=== PATIENT | female | born 1985 | race Caucasian/White ===

== ENCOUNTER 2016-10-04 08:17 | Inpatient (IN) | payer MEDICAID ==
[2016-10-04 09:17] LABS: APPEARANCE,URINE SLIGHTLY-CLOUDY; BILIRUBIN,URINE NEGATIVE (NEGATIVE); GLUCOSE, URINE NEGATIVE (NEGATIVE); KETONES,URINE NEGATIVE (NEGATIVE); LEUKOCYTE ESTERASE,URINE SMALL (NEGATIVE); NITRITE,URINE NEGATIVE (NEGATIVE); PROTEIN,URINE NEGATIVE (NEGATIVE); URINE SPECIFIC GRAVITY 1.012; UROBILINOGEN,URINE NEGATIVE mg/dL (<2.0)
[2016-10-04 09:32] LABS: URINE BARBITURATES SCREEN NEGATIVE; URINE METHADONE SCREEN NEGATIVE; URINE OPIATES LOW NEGATIVE; URINE PHENCYCLIDINE SCREEN NEGATIVE
--- NOTE | 2016-10-04 10:01 | L&D Flow Sheet ---
LD Flowsheet Datetime Report Generated by CPN: 10/04/2016 10:00 Datetime: 10/04/2016 09:53 Assessment A Monitor Interventions for FHR: Ultrasound Adjusted (Aryletha Diamond, RN) Patient Care Comments: pt standing at bedside (Ary Baidy, RN) Datetime: 10/04/2016 09:45 Patient Care Patient Position/Activity: Birthing Ball (Ary Baidy, RN) Datetime: 10/04/2016 09:41 Vaginal Exam Dilatation (cm): 4.0 (Ary Baidy, RN) Effacement (%): 90 (Ary Baidy, RN) Station: -2 (Ary Baidy, RN) Exam by: B Baidy RN (Ary Baidy, RN) Cervix, Consistency: Soft (Ary Baidy, RN) Datetime: 10/04/2016 09:37 Uterine Activity Monitor Interventions for UA: [place] Adjusted (Ary Baidy, RN) Datetime: 10/04/2016 09:27 Patient Care Patient Position/Activity: Right Tilt (Ary Baidy, RN) Datetime: 10/04/2016 09:15 Vital Signs NBP Sys/Valery/Mean (mmHg): 109 (QS system process) : 66 (QS system process) : 83 (QS system process) Pulse: 102 (QS system process) Datetime: 10/04/2016 08:49 Vaginal Exam Dilatation (cm): 3.0 (Ary Baidy, RN) Effacement (%): 80 (Ary Baidy, RN) Station: -2 (Ary Baidy, RN) Exam by: B Baidy RN (Ary Baidy, RN) Datetime: 10/04/2016 08:47 Uterine Activity Monitor Interventions for UA: [place] Adjusted (Ary Baidy, RN) Datetime: 10/04/2016 08:44 Vital Signs NBP Sys/Valery/Mean (mmHg): 96 (QS system process) : 66 (QS system process) : 74 (QS system process) Pulse: 114 (QS system process) Datetime: 10/04/2016 08:41 Frequency (min): 5-10 (Ary Diamond, ) Pain Pain Scale: 5 (Ary Graysonirina, ) Pain Presence: Intermittent (Ary Baiirina, ) [facility]: [facility] Pain Location: Abdomen ([facility], ) Pain Goal: 1 ([facility], ) Pain Coping: Breathing Through Contractions ([facility], ) Membrane Status: Intact ([facility], ) Vaginal Bleeding: None ([facility], ) Maternal Assessment Level of Consciousness: Fully Conscious (Ary Graysonirina, ) DTR's/Clonus: DTRs 2+; No Clonus (Ary Lobo, RN) Headache: Frontal (Aryletha Diamond, RN) Breath Sounds, Left: Clear and Equal (Ary Diamond, ) Breath Sounds, Right: Clear and Equal (Ary Diamond RN) Nausea/Vomiting: Denies (Ary Diamond RN) RUQ Epigastric Pain: Denies (Ary Diamond RN) Patient Care Patient Position/Activity: Left Lateral (Ary Diamond, NANCY) Teaching Instructional Method: Verbal; Patient Instructed; Verbalized Understanding (Ary Diamond RN) Plan of Care: Plan of Care Discussed (Ary Diamond RN) Unit Routine: [place] to Room; Call Mariano; Bed; Monitoring (Ary Diamond RN)
[2016-10-04] MEDS ORDERED: CLINDAMYCIN 900 MG/D5W RTU 50 ML IV ONE (10:15)
[2016-10-04] MEDS ORDERED: BENZOIN/ALOE VERA/STORAX/TOLU TINCTURE 60 ML TP PRN (10:42)
[2016-10-04] MEDS ORDERED: FENTANYL/BUPIVACAINE/NS/PF 100 ML EPI PRN (10:42)
[2016-10-04] MEDS ORDERED: EPHEDRINE SULFATE INJ 50 MG/1 ML AMPULE IV PRN (10:42)
[2016-10-04] MEDS ORDERED: BUPIVACAINE HCL/NS/PF 100 ML EPI PRN (10:42)
[2016-10-04] MEDS ORDERED: BUPIVACAINE HCL 0.25 % INJ/PF (2.5 MG/1 ML) 30 ML VIAL INFIL ONE (10:42)
[2016-10-04 10:44] LABS: ABSOLUTE BASOPHILS # (AUTO) 0.1 10^3/uL (0.0-0.2); ABSOLUTE EOSINOPHILS # (AUTO) 0.2 10^3/uL (0.0-0.6); ABSOLUTE LYMPHOCYTES (AUTO) 2.9 10^3/uL (0.5-4.7); ABSOLUTE MONOCYTES (AUTO) 0.8 10^3/uL (0.1-1.4); ABSOLUTE NEUT (AUTO) 11.4 10^3/uL (1.7-8.2); BASOPHILS % (AUTO) 0.8 % (0-2); EOSINOPHILS % (AUTO) 1.1 % (0-6); HEMATOCRIT 35.4 % (36.0-47.0); HGB HCT DIFFERENCE 0.6; LYMPHOCYTES % (AUTO) 19.1 % (13-45); MEAN CORPUSCULAR HEMOGLOBIN 32.1 pg (27.0-33.4); MEAN CORPUSCULAR HGB CONC 33.7 g/dL (32.0-36.0); MEAN CORPUSCULAR VOLUME 95 fl (80-97); RED BLOOD COUNT 3.72 10^6/uL (3.72-5.28); RED CELL DISTRIBUTION WIDTH 14.3 % (11.5-14.0); WHITE BLOOD COUNT 15.4 10^3/uL (4.0-10.5)
[2016-10-04] MEDS ORDERED: EPHEDRINE SULFATE INJ 50 MG/1 ML AMPULE ONE (10:47)
[2016-10-04] MEDS ORDERED: FENTANYL/BUPIVACAINE/NS/PF 200 MCG/100 ML RTUINJ EPI ONE (10:47)
[2016-10-04] MEDS ORDERED: FENTANYL CITRATE INJ/PF 100 MCG/2 ML AMPUL ONE (10:47)
[2016-10-04] MEDS ORDERED: BUPIVACAINE HCL 0.25 % INJ/PF (2.5 MG/1 ML) 30 ML VIAL ONE (10:47)
[2016-10-04] MEDS ORDERED: PHENYLEPHRINE HCL INJ/PF 10 MG/1 ML SDV ONE (10:47)
[2016-10-04] MEDS ORDERED: OXYTOCIN/NORMAL SALINE 20 UNIT/1,000 ML RTUINJ ONE (10:48)
[2016-10-04] MEDS ORDERED: MISOPROSTOL 0.2 MG TABLET ONE (10:48)
[2016-10-04] MEDS ORDERED: LIDOCAINE 1% INJ-PF (10 MG/ML) 30 ML SDV ONE (10:48)
--- NOTE | 2016-10-04 12:02 | L&D Flow Sheet ---
LD Flowsheet Datetime Report Generated by CPN: 10/04/2016 12:00 Datetime: 10/04/2016 11:53 Monitor Interventions for UA: [place] Adjusted (Ary Baidy, RN) Datetime: 10/04/2016 11:46 NBP Sys/Valery/Mean (mmHg): 106 (QS system process) : 60 (QS system process) : 77 (QS system process) Pulse: 78 (QS system process) LaborFlag: Antepartum (QS system process) Datetime: 10/04/2016 11:45 Monitor Mode: External; Palpation (Ary Baidy, RN) Frequency (min): 2-3 (Ary Baidy, RN) Quality: Moderate (Ary Baidy, RN) Duration (sec): 60-110 (Ary Baidy, RN) Duration Criteria: Less than Two 120 Second Contractions (Ary Baidy, RN) Pattern: Normal: <= 5 Contractions in 10 Minutes (Ary Baidy, RN) Resting Tone (Palpate): Relaxed (Ary Baidy, RN) Monitor Mode: External US (Ary Baidy, RN) FHR Baseline Rate : 130 (Ary Baidy, RN) Variability: Moderate 6-25 bpm (Ary Baidy, RN) Accelerations: 15X15 (Ary Baidy, RN) Decelerations: None (Ary Baidy, RN) Datetime: 10/04/2016 11:30 Monitor Mode: External; Palpation (Ary Baidy, RN) Monitor Interventions for UA: [place] Adjusted (Ary Baidy, RN) Frequency (min): 2-3 (Ary Baidy, RN) Quality: Moderate (Ary Baidy, RN) Duration (sec): 60-90 (Ary Diamond RN) Duration Criteria: Less than Two 120 Second Contractions (Ary Diamond RN) Pattern: Normal: <= 5 Contractions in 10 Minutes (Ary Diamond RN) Resting Tone (Palpate): Relaxed (Ary Diamond RN) Monitor Mode: External US (Ary Diamond RN) FHR Baseline Rate : 130 (Ary Diamond RN) Variability: Moderate 6-25 bpm (Ary Diamond RN) Accelerations: 15X15 (Ary Diamond RN) Decelerations: None (Ary Diamond, RN) Datetime: 10/04/2016 11:29 IV/Blood Work: IV Infusing per Order (Ary Diamond RN) Patient Care Comments: 125mL/hr (Ary Diamond RN) Datetime: 10/04/2016 11:28 NBP Sys/Valery/Mean (mmHg): 109 (QS system process) : 67 (QS system process) : 83 (QS system process) Pulse: 80 (QS system process) LaborFlag: Antepartum (QS system process) Datetime: 10/04/2016 11:24 NBP Sys/Valery/Mean (mmHg): 111 (QS system process) : 70 (QS system process) : 85 (QS system process) Pulse: 83 (QS system process) Monitor Interventions for FHR: Ultrasound Adjusted (Ary Diamond, RN) LaborFlag: Antepartum (QS system process) Datetime: 10/04/2016 11:23 Patient Position/Activity: Right Lateral; Peanut Ball (Ary Lobo, RN) Datetime: 10/04/2016 11:17 NBP Sys/Valery/Mean (mmHg): 111 (QS system process) : 74 (QS system process) : 87 (QS system process) Pulse: 75 (QS system process) Dilatation (cm): 5.0 (Ary Diamond RN) Effacement (%): 100 (Ary Diamond RN) Station: -1 (Ary Diamond RN) Exam by: Kasandra Diamond RN (Ary Diamond RN) Membrane Status: Bulging (Ary Diamond RN) LaborFlag: Antepartum (QS system process) Datetime: 10/04/2016 11:15 NBP Sys/Valery/Mean (mmHg): 110 (QS system process) NBP Sys/Valery/Mean (mmHg): 108 (QS system process) : 64 (QS system process) : 58 (QS system process) : 81 (QS system process) : 79 (QS system process) Pulse: 82 (QS system process) Pulse: 77 (QS system process) Monitor Mode: External; Palpation (Ary Diamond RN) Frequency (min): 2-3 (Ary Diamond RN) Quality: Moderate (Ary Diamond RN) Duration (sec): 60-90 (Ary Diamond RN) Duration Criteria: Less than Two 120 Second Contractions (Ary Diamond RN) Pattern: Normal: <= 5 Contractions in 10 Minutes (Ary Diamond RN) Resting Tone (Palpate): Relaxed (Ary Diamond RN) Monitor Mode: External US (Ary Diamond RN) FHR Baseline Changes: Unable to Determine (Ary Diamond RN) Variability: Moderate 6-25 bpm (Ary Diamond RN) Accelerations: Prolonged (Ary Diamond RN) Decelerations: None (Ary Diamond RN) I/O Interventions: [place] Cath Inserted (Ary Diamond RN) Patient Care Comments: 14f clear yellow urine noted. (Ary Diamond RN) LaborFlag: Antepartum (QS system process) Datetime: 10/04/2016 11:13 NBP Sys/Valery/Mean (mmHg): 115 (QS system process) : 72 (QS system process) : 88 (QS system process) Pulse: 91 (QS system process) LaborFlag: Antepartum (QS system process) Datetime: 10/04/2016 11:12 NBP Sys/Valery/Mean (mmHg): 110 (QS system process) : 72 (QS system process) : 85 (QS system process) Pulse: 87 (QS system process) LaborFlag: Antepartum (QS system process) Datetime: 10/04/2016 11:11 NBP Sys/Valery/Mean (mmHg): 112 (QS system process) : 69 (QS system process) : 86 (QS system process) Pulse: 88 (QS system process) LaborFlag: Antepartum (QS system process) Datetime: 10/04/2016 11:10 NBP Sys/Valery/Mean (mmHg): 107 (QS system process) : 67 (QS system process) : 80 (QS system process) Pulse: 88 (QS system process) LaborFlag: Antepartum (QS system process) Datetime: 10/04/2016 11:09 NBP Sys/Valery/Mean (mmHg): 112 (QS system process) NBP Sys/Valery/Mean (mmHg): 113 (QS system process) : 69 (QS system process) : 72 (QS system process) : 84 (QS system process) : 87 (QS system process) Pulse: 89 (QS system process) Pulse: 96 (QS system process) Patient Position/Activity: Right Tilt (Ary Diamond RN) LaborFlag: Antepartum (QS system process) Datetime: 10/04/2016 11:08 Monitor Interventions for UA: [place] Adjusted (Ary Diamond RN) Monitor Interventions for FHR: Ultrasound Adjusted (Ary Diamond RN) Datetime: 10/04/2016 11:07 NBP Sys/Valery/Mean (mmHg): 123 (QS system process) : 80 (QS system process) : 94 (QS system process) Pulse: 90 (QS system process) Pulse: 85 (QS system process) SpO2 (%): 98 (QS system process) LaborFlag: Antepartum (QS system process) Datetime: 10/04/2016 11:05 NBP Sys/Valery/Mean (mmHg): 126 (QS system process) : 84 (QS system process) : 100 (QS system process) Pulse: 91 (QS system process) LaborFlag: Antepartum (QS system process) Datetime: 10/04/2016 11:04 Epidural Procedure: Cath Placed (Ary Lobo, RN) Epidural Procedure: Test Dose (Ary Diamond, RN) Datetime: 10/04/2016 11:02 Pulse: 101 (QS system process) SpO2 (%): 97 (QS system process) LaborFlag: Antepartum (QS system process) Datetime: 10/04/2016 11:00 Monitor Mode: External; Palpation (Ary Diamond, RN) Frequency (min): 2-3 (Ary Diamond, RN) Quality: Moderate (Ayr Baidy, RN) Duration (sec): 60-90 (Ary Baiirina, RN) Duration Criteria: Less than Two 120 Second Contractions (Ary iDamond, RN) Pattern: Normal: <= 5 Contractions in 10 Minutes (Ary Lobo, RN) Resting Tone (Palpate): Relaxed (Ary Lobo, RN) Monitor Mode: External US (Ary Diamond, RN) FHR Baseline Rate : 130 (Ary Baiirina, RN) Variability: Moderate 6-25 bpm (Ary Baidy, RN) Accelerations: 15X15 (Ary Baidy, RN) Decelerations: None (Ary Baidy, RN) Datetime: 10/04/2016 10:58 Procedure Type: epidural (Ary Diamond RN) Procedure Verify: Correct Patient Identity; Correct Side and Site are Marked; Accurate Procedure Consent Form; Agreement on Procedure to be Done; Correct Patient Position; Relevant Images and Results are Properly Labeled and Displayed; Addressed Need to Administer Antibiotics or Fluids for Irrigation; Safety Precautions Based on Patient History or Medication Use (Ary Diamond RN) Anesthesia Plans: Epidural (Ary Diamond RN) Epidural Positioning: Sitting (Ary Diamond RN) Datetime: 10/04/2016 10:57 Pulse: 102 (QS system process) SpO2 (%): 96 (QS system process) LaborFlag: Antepartum (QS system process) Datetime: 10/04/2016 10:52 IV/Blood Work: New IV Bag Hung (Ary Diamond, NANCY) Datetime: 10/04/2016 10:50 Anesthesia Comments: Dr Torres notified of epidural request (Daniella Barraza RN) Datetime: 10/04/2016 10:48 Anesthesia Comments: Dr Torres called and notified of pt request for epidural. (Ary Diamond RN) Datetime: 10/04/2016 10:30 Monitor Mode: External; Palpation (Ary Diamond RN) Frequency (min): 2-3 (Ary Diamond RN) Quality: Moderate (Ary Diamond RN) Duration (sec): 60-90 (Ary Diamond RN) Duration Criteria: Less than Two 120 Second Contractions (Ary Diamond RN) Pattern: Normal: <= 5 Contractions in 10 Minutes (Ary Diamond RN) Resting Tone (Palpate): Relaxed (Ary Diamond RN) Monitor Mode: External US (Ary Diamond RN) FHR Baseline Rate : 130 (Ary Baidy, RN) Variability: Moderate 6-25 bpm (Ary Baidy, RN) Accelerations: 15X15 (Ary Baidy, RN) Decelerations: None (Ary Baidy, RN) Datetime: 10/04/2016 10:23 Monitor Interventions for FHR: Ultrasound Adjusted (Ary Baidy, RN) Patient Care Comments: pt sitting straight up in bed (Ary Baidy, RN) Datetime: 10/04/2016 10:16 Antibiotics: Clindamycin IV 900 mg (Ary Baidy, RN) Datetime: 10/04/2016 10:12 IV/Blood Work: IV Started; IV Bolus Started (Ary Diamond RN) Patient Care Comments: 18g in left wrist, stat lock applied. (Ary Diamond RN) Datetime: 10/04/2016 10:01 I/O Interventions: Up to BR (Ary Diamond RN) Datetime: 10/04/2016 10:00 Monitor Mode: External; Palpation (Ary Diamond RN) Frequency (min): 1-3 (Ary Diamond RN) Quality: Mild/Moderate (Ary Diamond RN) Duration (sec): 40-90 (Ary Diamond RN) Duration Criteria: Less than Two 120 Second Contractions (Ary Diamond RN) Pattern: Normal: <= 5 Contractions in 10 Minutes (Ary Diamond RN) Resting Tone (Palpate): Relaxed (Ary Diamond RN) Monitor Mode: External US (Ary Diamond RN) FHR Baseline Rate : 135 (Ary Diamond RN) Variability: Moderate 6-25 bpm (Ary Diamond, RN) Accelerations: None (Ary Diamond, RN) Decelerations: None (Ary Diamond, RN) Communication: Report Given to @ Dr Gutierrez (Ary Diamond, NANCY) Notification Reason: Status Update; Status; Labor Status; Membrane Status; Uterine Activity; Pain (Ary Diamond, NANCY) Communication Comments: Orders received to admit and pt may have epidural prn for pain. (Ary Diamond, NANCY)
--- NOTE | 2016-10-04 14:01 | L&D Flow Sheet ---
LD Flowsheet Datetime Report Generated by CPN: 10/04/2016 14:00 Datetime: 10/04/2016 13:46 NBP Sys/Valery/Mean (mmHg): 101 (QS system process) : 66 (QS system process) : 79 (QS system process) Pulse: 79 (QS system process) Datetime: 10/04/2016 13:31 NBP Sys/Valery/Mean (mmHg): 100 (QS system process) : 55 (QS system process) : 74 (QS system process) Pulse: 83 (QS system process) Datetime: 10/04/2016 13:27 Stage of : Recovery (Ary Diamond RN) Respirations: 16 (Ary Diamond RN) Temperature (F): 98.0 (Ary Diamond RN) Temperature (C): 36.7 (QS system process) Temperature Route: Oral (Ary Diamond RN) Pain Scale: 0 (Ary Diamond RN) Pain Presence: None/Denies (Ary Diamond RN) Pain Type: N/A (Ayr Diamond RN) Datetime: 10/04/2016 13:25 Stage of : Recovery (Daniella Barraza RN) Datetime: 10/04/2016 13:23 Pushing Progress: with Pushing (Ary Diamond, RN) Datetime: 10/04/2016 13:17 NBP Sys/Valery/Mean (mmHg): 104 (QS system process) : 56 (QS system process) : 73 (QS system process) Pulse: 78 (QS system process) Stage 2 Comments: provider back in room, pushing resumed. (Ary Diamond, RN) LaborFlag: Antepartum (QS system process) Datetime: 10/04/2016 13:09 Communication Comments: provider out of room to attend another delivery. Pushing stopped. (Ary Diamond, RN) Datetime: 10/04/2016 13:01 NBP Sys/Valery/Mean (mmHg): 99 (QS system process) : 55 (QS system process) : 70 (QS system process) Pulse: 90 (QS system process) LaborFlag: Antepartum (QS system process) Datetime: 10/04/2016 12:58 Comments: RN and provider at bedside continuously monitoring fht while pt pushing with ctx. (Ary Diamond RN) Datetime: 10/04/2016 12:51 Dilatation (cm): 10.0 (Ary Diamond RN) Effacement (%): 100 (Ary Diamond RN) Station: 0 (Ary Diamond RN) Exam by: Dr Gutierrez (Ary Diamond RN) Membranes Rupture Method: Artificial (Ary Diamond RN) Amniotic Fluid Color: Clear (Ary Diamond RN) Amniotic Fluid Amount: Moderate (Ary Diamond RN) Amniotic Fluid Odor: Normal (Ary Diamond RN) Datetime: 10/04/2016 12:47 NBP Sys/Valery/Mean (mmHg): 90 (QS system process) : 52 (QS system process) : 65 (QS system process) Pulse: 77 (QS system process) LaborFlag: Antepartum (QS system process) Datetime: 10/04/2016 12:45 Monitor Mode: External; Palpation (Ary Diamond RN) Frequency (min): 3-4 (Ary Diamond RN) Quality: Moderate (Ary Diamond RN) Duration (sec): 60-80 (Ary Diamond RN) Duration Criteria: Less than Two 120 Second Contractions (Ary Diamond RN) Pattern: Normal: <= 5 Contractions in 10 Minutes (Ary Diamond RN) Resting Tone (Palpate): Relaxed (Ary Diamond RN) Monitor Mode: External US (Ary Diamond RN) FHR Baseline Rate : 130 (Ary Diamond, RN) Variability: Moderate 6-25 bpm (Ary Diamond, RN) Accelerations: 15X15 (Ary Diamond, NANCY) Decelerations: None (Ary Diamond RN) Notification Reason: Status Update; Labor Status; Membrane Status (Ary Diamond RN) Communication Comments: Dr Gutierrez notified of SVE of 8.5/100/0 (Ary Diamond RN) Datetime: 10/04/2016 12:41 Monitor Interventions for FHR: Ultrasound Adjusted (Ary Diamond, RN) Datetime: 10/04/2016 12:39 Monitor Interventions for UA: [place] Adjusted (Ary Diamond, NANCY) Monitor Interventions for FHR: Ultrasound Adjusted (Ary Diamond, RN) Patient Position/Activity: Left Lateral (Ary Diamond, RN) Datetime: 10/04/2016 12:36 Pain Presence: Intermittent (Ary Diamond RN) Pain Type: Pressure (Ary Diamond RN) Pain Location: Perineum (Ary Diamond RN) Dilatation (cm): 8.5 (Ary Diamond RN) Effacement (%): 100 (Ary Diamond RN) Station: 0 (Ary Diamond RN) Exam by: Kasandra Diamond RN (Ary Diamond RN) LaborFlag: Antepartum (QS system process) Datetime: 10/04/2016 12:31 NBP Sys/Valery/Mean (mmHg): 110 (QS system process) : 65 (QS system process) : 81 (QS system process) Pulse: 89 (QS system process) LaborFlag: Antepartum (QS system process) Datetime: 10/04/2016 12:30 Monitor Mode: External; Palpation (Ary Baidy, RN) Frequency (min): 3-4 (Ary Baidy, RN) Quality: Moderate (Ary Baidy, RN) Duration (sec): 40-100 (Ary Baidy, RN) Duration Criteria: Less than Two 120 Second Contractions (Ary Baidy, RN) Pattern: Normal: <= 5 Contractions in 10 Minutes (Ary Baidy, RN) Resting Tone (Palpate): Relaxed (Ary Baidy, RN) Monitor Mode: External US (Ary Baidy, RN) FHR Baseline Rate : 130 (Ary Baidy, RN) Variability: Moderate 6-25 bpm (Ary Baidy, RN) Accelerations: 15X15 (Ary Baidy, RN) Decelerations: None (Ary Baidy, RN) Datetime: 10/04/2016 12:17 NBP Sys/Valery/Mean (mmHg): 98 (QS system process) : 53 (QS system process) : 73 (QS system process) Pulse: 85 (QS system process) LaborFlag: Antepartum (QS system process) Datetime: 10/04/2016 12:15 Monitor Mode: External; Palpation (Ary Baidy, RN) Frequency (min): 3 (Ary Baidy, RN) Quality: Moderate (Ary Baidy, RN) Duration (sec): 60-90 (Ary Baidy, RN) Duration Criteria: Less than Two 120 Second Contractions (Ary Baidy, RN) Pattern: Normal: <= 5 Contractions in 10 Minutes (Ary Baidy, RN) Resting Tone (Palpate): Relaxed (Ary Baidy, RN) Monitor Mode: External US (Ary Baidy, RN) FHR Baseline Rate : 120 (Ary Baidy, RN) Variability: Moderate 6-25 bpm (Ary Baidy, RN) Accelerations: 15X15 (Ary Baidy, RN) Decelerations: None (Ary Baidy, RN) Datetime: 10/04/2016 12:01 NBP Sys/Valery/Mean (mmHg): 103 (QS system process) : 59 (QS system process) : 78 (QS system process) Pulse: 86 (QS system process) LaborFlag: Antepartum (QS system process) Datetime: 10/04/2016 12:00 Monitor Mode: External; Palpation (Ary Diamond RN) Frequency (min): 2-3 (Ary Diamond RN) Quality: Moderate (Ary Diamond RN) Duration (sec): 60-80 (Ayr Diamond RN) Duration Criteria: Less than Two 120 Second Contractions (Ary Diamond RN) Pattern: Normal: <= 5 Contractions in 10 Minutes (Ary Diamond RN) Resting Tone (Palpate): Relaxed (Ary Diamond RN) Monitor Mode: External US (Ary Diamond RN) FHR Baseline Rate : 130 (Ary Diamond RN) Variability: Moderate 6-25 bpm (Ary Diamond RN) Accelerations: 15X15 (Ary Diamond RN) Decelerations: None (Ary Diamond RN)
[2016-10-04] MEDS ORDERED: ACETAMINOPHEN WITH CODEINE #3 TABLET ONE (14:22)
[2016-10-04] MEDS ORDERED: IBUPROFEN 800 MG TABLET ONE (14:23)
[2016-10-04] MEDS: RINGERS SOLUTION,LACTATED 1,000 ML IV PRN ×2 (14:31→14:32)
[2016-10-04] MEDS ORDERED: DIPH/PERTUSS(ACELL)/TETANUS VAC/PF 0.5 ML SYR (>=10YO) IM PRN (15:04)
[2016-10-04] MEDS ORDERED: ACETAMINOPHEN WITH CODEINE #3 TABLET PO PRN (15:04)
[2016-10-04] MEDS ORDERED: ZOLPIDEM TARTRATE 5 MG TABLET PO PRN (15:04)
[2016-10-04] MEDS ORDERED: MEASLES,MUMPS&RUBELLA VACC/PF 0.5 ML VIAL SUBCUT PRN (15:04)
[2016-10-04] MEDS ORDERED: DIBUCAINE 1% OINTMENT 28 GM TP PRN (15:04)
[2016-10-04] MEDS ORDERED: OXYTOCIN/NORMAL SALINE 1,000 ML IV PRN (15:04)
[2016-10-04] MEDS ORDERED: BENZOCAINE/MENTHOL AEROSOL SPRAY 56 ML TOP PRN (15:04)
[2016-10-04] MEDS ORDERED: IBUPROFEN 800 MG TABLET PO ONE (15:30)
--- NOTE | 2016-10-04 15:50 | Admission Physical ---
Datetime Report Generated by CPN: 10/04/2016 15:50 CURRENT ADMISSION Hx Assessment: The History has been Reviewed and is Current Chief Complaint: Uterine Contractions Indication for Induction: Not Applicable Admit Plan: Admit to Unit; Initiate Labor Protocol ALLERGIES Medication Allergies: Yes Medication Allergies: amoxicillin/Unknown reactio (10/04/2016) Latex: No Latex Allergies OBSTETRICAL HISTORY EDC: 10/02/2016 00:00 : 3 Para: 2 Term: 2 : 0 SAB: 0 IAB: 0 Ectopic: 0 Livin Cesareans: 0 VBACs: 0 Multiple Births: 0 Gestational Diabetes: No Rh Sensitization: No Incompetent Cervix: No MONIE: No Infertility: No ART Treatment: No Uterine Anomaly: No IUGR: No Hx Previous C/S: No Macrosomia: No Hx Loss/Stillborn: No PIH: No Hx : No Placenta Previa/Abruption: No Depression/PP Depression: No PTL/PROM: No Post Hemorrhage: No Current Procedures: Ultrasound; NST Obstetrical History Comments: G1- 41 wk 2008 G2- 38.5 2013 G2-current SEE RECORDS Alcohol: No Marijuana : No Marijuana Comments: prenatals state that pt has hx of drug abuse marijuana drug of choice. Cocaine: No Other Illicit Drugs: No Cigarettes: Current Everyday Smoker. [id number] Cigarette Frequency: > 10 per day Advised to Stop: Yes Cigarette Comments: pt states that she smokes over 1/2 pack per day MEDICAL HISTORY Diabetes: No Blood Transfusion: No Pulmonary Disease (Asthma, TB): No Breast Disease: No Hypertension: No Sugar Boiler Surgery: Yes Heart Disease: No Hosp/Surgery: Yes Autoimmune Disorder: No Anesthetic Complications: No Kidney Disease: No Abnormal Pap Smear: Yes Neuro/Epilepsy: No Psychiatric Disorders: No Other Medical Diseases: No Hepatitis/Liver Disease: No Significant Family History: No Varicosities/Phlebitis: No Trauma/Violence : No Thyroid Dysfunction: No Medical History Comments: LEEP done since last baby, plan colpo pp spont. pneumothorax 2009, right side, chest tube placed. INFECTIOUS HISTORY Gonorrhea: No Genital Herpes: No Chlamydia: No Tuberculosis: No Syphilis: No Hepatitis: No HIV/AIDS Exposure: No Rash or Viral Illness: No HPV: Yes PHYSICAL EXAM General: Normal HEENT: Deferred Neurologic: Deferred Thyroid: Deferred Heart: Normal Lungs: Normal Breast: Deferred Back: Deferred Abdomen: Normal Genitourinary Exam: Normal Extremities: Normal DTRs: Normal Pelvic Type: Adequate Vital Signs: Reviewed; Within Normal Limits MEMBRANES Membranes: Intact FETUS A EGA: 40.2 FHR Category: Category I Admit Comment: Term labor. gbs + clinda susceptible. epidural PLANS FOR LABOR AND DELIVERY Pain Management: Epidural Feeding Preference: Formula Benefit of Breast Feed Discussed: Yes Circumcision: N/A INFORMED CONSENT Signature: with User ID: [email or web address]
[2016-10-04] MEDS ORDERED: INFLUENZA ADLT QUAD (36MOS+) 2016-17 VAC 0.5 ML SYR IM PRN (16:12)
--- NOTE | 2016-10-04 16:47 | Delivery Summary ---
Del Sum A-C Datetime Report Generated by CPN: 10/04/2016 16:46 ADMISSION DATA Chief Complaint: Uterine Contractions Indication for Induction: Not Applicable Admission Impression: Term, Intrauterine ; Active Labor Admit Provider Comments: Term labor. gbs + clinda susceptible. epidural DELIVERY PERSONNEL Delivery Doctor:: Mag Gutierrez MD Labor and Delivery Nurse:: Ary Diamond RN Nursery Nurse:: Daniella Barraza RN Hot Metal Mixer Operator Helper/RESEARCH INSTRUMENTATION TECHNICIAN: Vasyl Rhoades, BRAZING FURNACE OPERATOR MATERNAL INFORMATION Delivery Anesthesia: Epidural Medications After Delivery: Pitocin Drip 20 Units/1000ml NSS; Other-Please Comment Meds After Delivery Comment: cytotec 1000mcg pr Estimated Blood Loss (ml): 300 Maternal Complications: None Provider Comments: over intact perineum, no lacs. live female ap 8/9. spontaneous intact placenta 3vc. no complications LABOR SUMMARY EDC: 10/02/2016 00:00 No. Babies in Womb: 1 Attempted: No Labor Anesthesia: Epidural LABOR INFORMATION Reason for Induction: Not Applicable Onset of Labor: 10/04/2016 09:41 Complete Dilatation: 10/04/2016 12:51 Oxytocin: N/A Group B Beta Strep: positive Antibiotics # of Doses: 1 Antibiotics Time of Last Dose: 1016 Name of Antibiotic Given: clindamycin Steroids Given: None Reason Steroids Not Administered: Not Applicable MEMBRANES Membranes Rupture Method: Artificial Rupture of Membranes: 10/04/2016 12:51 Length of Rupture (hr): 0.55 Amniotic Fluid Color: Clear Amniotic Fluid Amount: Moderate Amniotic Fluid Odor: Normal STAGES OF LABOR Stage 1 hr: 3 Stage 1 min: 10 Stage 2 hr: 0 Stage 2 min: 33 Stage 3 hr: 0 Stage 3 min: 3 Total Time in Labor hr: 3 Total Time in Labor min: 46 VAGINAL DELIVERY Episiotomy: None Laceration Extension: N/A Laceration Type: None Laceration Repair: Not Applicable Sponge Count Correct: Yes Sharps Count Correct: Yes CSECTION DELIVERY Primary Indication: N/A Secondary Indication: N/A CSection Incidence: N/A Labor: N/A Elective: N/A CSection Incision: N/A BABY A INFORMATION Delivery Date/Time: 10/04/2016 13:24 Method of Delivery: Vaginal Born in Route : No : N/A Forceps: N/A Vacuum Extraction: N/A Shoulder Dystocia : No PRESENTATION/POSITION BABY A Presentation: Cephalic Cephalic Presentation: Vertex Vertex Position: Left Occipital Anterior Breech Presentation: N/A PLACENTA INFORMATION BABY A Placenta Delivery Time : 10/04/2016 13:27 Placenta Method of Delivery: Spontaneous Placenta Status: Delivered SCORES BABY A Heart Rate 1 min: >100 bpm Resp Effort 1 min: Good Cry Reflex Irritability 1 min: Cough or Sneeze or Pulls Away Muscle Tone 1 min: Active Motion Color 1 min: Blue/Pale Resuscitation Effort 1 min: Tactile Stimulation SCORE 1 MIN: 8 Heart Rate 5 min: >100 bpm Resp Effort 5 min: Good Cry Reflex Irritability 5 min: Cough or Sneeze or Pulls Away Muscle Tone 5 min: Active Motion Color 5 min: Body [place], Extremities Blue Resuscitation Effort 5 min: N/A SCORE 5 MIN: 9 INFORMATION BABY A Gestational Age at Delivery: 40.2 Gestational Status: Full Term- 39- 40.6 Weeks Outcome : Liveborn Condition : Stable Sex: Female IDENTIFICATION BABY A Verification Date/Time: 10/04/2016 13:24 ID Band Number: [id number] Mother's Name Verified: Yes Infant RN Verifying Infant: A. Madi RN Additional Verifying Personnel: Sabino Diamond RN WEIGHT/LENGTH BABY A Infant Birthweight (gm): 3125 Infant Weight (lb): 6 Infant Weight (oz): 14 Infant Length (in): 19.50 Length (cm): 49.53 CORD INFORMATION BABY A No. Cord Vessels: 3 Nuchal Cord : N/A Cord Blood Taken: Yes-For Storage (Mom's Blood type +) Infant Suction: Mouth; Nose ASSESSMENT BABY A Infant Complications: None Physical Findings at Delivery: Within Normal Limits Infant Respirations: Appears Normal Skin to Skin: Yes Skin to Skin Time (min): 60 Sociology Instructor/ALS Called : No Infant Care By: Dulce Maria Barraza RN Transferred To: Remains with Mother BABY B INFORMATION : N/A SIGNATURES Signature: with User ID: [email or web address]
[2016-10-04] MEDS: DOCUSATE SODIUM 100 MG CAPSULE PO SCH (17:04)
[2016-10-04] MEDS: FERROUS SULFATE 325 MG TABLET PO SCH (17:04)
[2016-10-04] MEDS: ACETAMINOPHEN WITH CODEINE #3 TABLET PO PRN (17:06)
[2016-10-04] MEDS ORDERED: CLINDAMYCIN 900 MG/D5W RTU 50 ML IV SCH (18:00)
--- NOTE | 2016-10-04 19:01 | L&D Flow Sheet ---
LD Flowsheet Datetime Report Generated by CPN: 10/04/2016 19:00 Datetime: 10/04/2016 15:31 NBP Sys/Valery/Mean (mmHg): 110 (QS system process) : 70 (QS system process) : 85 (QS system process) Pulse: 85 (QS system process) Datetime: 10/04/2016 15:16 NBP Sys/Valery/Mean (mmHg): 107 (QS system process) : 63 (QS system process) : 79 (QS system process) Pulse: 75 (QS system process) Datetime: 10/04/2016 15:12 Pain Pain Scale: 0 (Ary Baidy, RN) Pain Presence: None/Denies (Ary Baidy, RN) Pain Type: N/A (Ary Baidy, RN) Datetime: 10/04/2016 15:01 NBP Sys/Valery/Mean (mmHg): 108 (QS system process) : 67 (QS system process) : 83 (QS system process) Pulse: 85 (QS system process) Datetime: 10/04/2016 14:31 NBP Sys/Valery/Mean (mmHg): 101 (QS system process) : 59 (QS system process) : 75 (QS system process) Pulse: 83 (QS system process) Pain Pain Scale: 3 (Ary Diamond, RN) Pain Presence: Constant (Ary Diamond, RN) Pain Type: Cramping (Ary Diamond, NANCY) Pain Location: Abdomen (Ary Diamond, NANCY) Pain Goal: 1 (Ary Diamond, RN) Pain Relief Measures: Pain Medication Given (Ary Diamond, RN) Datetime: 10/04/2016 14:16 NBP Sys/Valery/Mean (mmHg): 99 (QS system process) : 59 (QS system process) : 75 (QS system process) Pulse: 97 (QS system process) Datetime: 10/04/2016 14:01 NBP Sys/Valery/Mean (mmHg): 103 (QS system process) : 57 (QS system process) : 78 (QS system process) Pulse: 81 (QS system process) Datetime: 10/04/2016 13:46 NBP Sys/Valery/Mean (mmHg): 101 (QS system process) : 66 (QS system process) : 79 (QS system process) Pulse: 79 (QS system process) Datetime: 10/04/2016 13:31 NBP Sys/Avlery/Mean (mmHg): 100 (QS system process) : 55 (QS system process) : 74 (QS system process) Pulse: 83 (QS system process) Datetime: 10/04/2016 13:27 Vital Signs Stage of : Recovery (Ary Diamond RN) Respirations: 16 (Ary Diamond RN) Temperature (F): 98.0 (Ary Diamond RN) Temperature (C): 36.7 (QS system process) Temperature Route: Oral (Ary Diamond RN) Pain Pain Scale: 0 (Ary Baidy, RN) Pain Presence: None/Denies (Ary Renukady, RN) Pain Type: N/A (Ary Baidy, RN) Medication Comments: pitocin bolus started. (Ary Baidy, RN) Datetime: 10/04/2016 13:25 Vital Signs Stage of : Recovery (Daniella Madi, RN) Datetime: 10/04/2016 13:23 Stage 2 Pushing Progress: with Pushing (Ary Diamond, RN) Datetime: 10/04/2016 13:17 NBP Sys/Valery/Mean (mmHg): 104 (QS system process) : 56 (QS system process) : 73 (QS system process) Pulse: 78 (QS system process) Stage 2 Comments: provider back in room, pushing resumed. (Ary Diamond RN) LaborFlag: Antepartum (QS system process) Datetime: 10/04/2016 13:15 Uterine Activity Monitor Mode: External; Palpation (Ary Baidy, RN) Frequency (min): 2-3 (Ary Baidy, RN) Quality: Moderate (Ary Baidy, RN) Duration (sec): 60-90 (Ary Baidy, RN) Duration Criteria: Less than Two 120 Second Contractions (Ary Baidy, RN) Pattern: Normal: <= 5 Contractions in 10 Minutes (Ary Baidy, RN) Resting Tone (Palpate): Relaxed (Ary Baidy, RN) Assessment A Monitor Mode: External US (Ary Baidy, RN) FHR Baseline Rate : 130 (Ary Baidy, RN) Variability: Moderate 6-25 bpm (Ary Baidy, RN) Accelerations: 15X15 (Ary Baidy, RN) Decelerations: None (Ary Diamond, RN) Datetime: 10/04/2016 13:09 Communication Comments: provider out of room to attend another delivery. Pushing stopped. (Ary Diamond, RN) Datetime: 10/04/2016 13:01 NBP Sys/Valery/Mean (mmHg): 99 (QS system process) : 55 (QS system process) : 70 (QS system process) Pulse: 90 (QS system process) LaborFlag: Antepartum (QS system process) Datetime: 10/04/2016 13:00 Uterine Activity Monitor Mode: External; Palpation (Ary Baidy, RN) Frequency (min): 2-4 (Ary Baidy, RN) Quality: Moderate (Ary Baidy, RN) Duration (sec): 60-90 (Ary Baidy, RN) Duration Criteria: Less than Two 120 Second Contractions (Ary Baidy, RN) Pattern: Normal: <= 5 Contractions in 10 Minutes (Ary Baidy, RN) Resting Tone (Palpate): Relaxed (Ary Baidy, RN) Assessment A Monitor Mode: External US (Ary Baidy, RN) FHR Baseline Rate : 130 (Ary Baidy, RN) Variability: Moderate 6-25 bpm (Ary Baidy, RN) Accelerations: 15X15 (Ary Baidy, RN) Decelerations: None (Ary Baidy, RN) Datetime: 10/04/2016 12:58 Comments: RN and provider at bedside continuously monitoring fht while pt pushing with ctx. (Ary Diamond RN) Datetime: 10/04/2016 12:51 Vaginal Exam Dilatation (cm): 10.0 (Ary Diamond RN) Effacement (%): 100 (Ary Diamond RN) Station: 0 (Ary Diamond RN) Exam by: Dr Gutierrez (Ary Diamond RN) Membranes Rupture Method: Artificial (Ary Diamond RN) Amniotic Fluid Color: Clear (Ary Diamond RN) Amniotic Fluid Amount: Moderate (Ary Diamond RN) Amniotic Fluid Odor: Normal (Ary Baidy, RN) Datetime: 10/04/2016 12:47 NBP Sys/Valery/Mean (mmHg): 90 (QS system process) : 52 (QS system process) : 65 (QS system process) Pulse: 77 (QS system process) LaborFlag: Antepartum (QS system process) Datetime: 10/04/2016 12:45 Uterine Activity Monitor Mode: External; Palpation (Ary Diamond RN) Frequency (min): 3-4 (Ary Diamond RN) Quality: Moderate (Ary Baidy, RN) Duration (sec): 60-80 (Ary Baidy, RN) Duration Criteria: Less than Two 120 Second Contractions (Ary Baiirina, RN) Pattern: Normal: <= 5 Contractions in 10 Minutes (Ary Baiirina, RN) Resting Tone (Palpate): Relaxed (Ary Baidy, RN) Assessment A Monitor Mode: External US (Ary Diamond, RN) FHR Baseline Rate : 130 (Ary Diamond, RN) Variability: Moderate 6-25 bpm (Ary Baidy, RN) Accelerations: 15X15 (Ary Baidy, RN) Decelerations: None (Ary Baiirina, RN) Notification Reason: Status Update; Labor Status; Membrane Status (Ary Diamond, RN) Communication Comments: Dr Gutierrez notified of SVE of 8.5/100/0 (Ary Diamond, RN) Datetime: 10/04/2016 12:41 Monitor Interventions for FHR: Ultrasound Adjusted (Ary Diamond, RN) Datetime: 10/04/2016 12:39 Monitor Interventions for UA: [place] Adjusted (Ary Lobo, RN) Monitor Interventions for FHR: Ultrasound Adjusted (Ary Lobo, RN) Patient Position/Activity: Left Lateral (Ary Diamond, RN) Datetime: 10/04/2016 12:36 Pain Presence: Intermittent (Ary Baiirina, RN) Pain Type: Pressure (Ary Baidy, RN) Pain Location: Perineum (Ary Baidy, RN) Vaginal Exam Dilatation (cm): 8.5 (Ary Diamond, RN) Effacement (%): 100 (Ary Lobo, RN) Station: 0 (Ary Diamond, RN) Exam by: Kasandra Diamond RN (Ary Lobo, RN) LaborFlag: Antepartum (QS system process) Datetime: 10/04/2016 12:31 NBP Sys/Valery/Mean (mmHg): 110 (QS system process) : 65 (QS system process) : 81 (QS system process) Pulse: 89 (QS system process) LaborFlag: Antepartum (QS system process) Datetime: 10/04/2016 12:30 Uterine Activity Monitor Mode: External; Palpation (Ary Baidy, RN) Frequency (min): 3-4 (Ary Baidy, RN) Quality: Moderate (Ary Baidy, RN) Duration (sec): 40-100 (Ary Baidy, RN) Duration Criteria: Less than Two 120 Second Contractions (Ary Baidy, RN) Pattern: Normal: <= 5 Contractions in 10 Minutes (Ary Baidy, RN) Resting Tone (Palpate): Relaxed (Ary Baidy, RN) Assessment A Monitor Mode: External US (Ary Baidy, RN) FHR Baseline Rate : 130 (Ary Baidy, RN) Variability: Moderate 6-25 bpm (Ary Baidy, RN) Accelerations: 15X15 (Ary Baidy, RN) Decelerations: None (Ary Baidy, RN) Datetime: 10/04/2016 12:17 NBP Sys/Valery/Mean (mmHg): 98 (QS system process) : 53 (QS system process) : 73 (QS system process) Pulse: 85 (QS system process) LaborFlag: Antepartum (QS system process) Datetime: 10/04/2016 12:15 Uterine Activity Monitor Mode: External; Palpation (Ary Diamond RN) Frequency (min): 3 (Ary Diamond, RN) Quality: Moderate (Ary Diamond, RN) Duration (sec): 60-90 (Ary Diamond RN) Duration Criteria: Less than Two 120 Second Contractions (Ary Diamond, NANCY) Pattern: Normal: <= 5 Contractions in 10 Minutes (Ary Diamond, NANCY) Resting Tone (Palpate): Relaxed (Ary Diamond, NANCY) Assessment A Monitor Mode: External US (Ary Lobo, RN) FHR Baseline Rate : 120 (Ary Renukady, RN) Variability: Moderate 6-25 bpm (Ary Baidy, RN) Accelerations: 15X15 (Ary Baidy, RN) Decelerations: None (Ary Baidy, RN) Datetime: 10/04/2016 12:01 NBP Sys/Valery/Mean (mmHg): 103 (QS system process) : 59 (QS system process) : 78 (QS system process) Pulse: 86 (QS system process) LaborFlag: Antepartum (QS system process) Datetime: 10/04/2016 12:00 Uterine Activity Monitor Mode: External; Palpation (Ary Baidy, RN) Frequency (min): 2-3 (Ary Baidy, RN) Quality: Moderate (Ary Baidy, RN) Duration (sec): 60-80 (Ary Baidy, RN) Duration Criteria: Less than Two 120 Second Contractions (Ary Baidy, RN) Pattern: Normal: <= 5 Contractions in 10 Minutes (Ary Baidy, RN) Resting Tone (Palpate): Relaxed (Ary Baidy, RN) Assessment A Monitor Mode: External US (Ary Baidy, RN) FHR Baseline Rate : 130 (Ary Baidy, RN) Variability: Moderate 6-25 bpm (Ary Baidy, RN) Accelerations: 15X15 (Ary Baidy, RN) Decelerations: None (Ary Baidy, RN) Datetime: 10/04/2016 11:53 Monitor Interventions for UA: [place] Adjusted (Ary Baidy, RN) Datetime: 10/04/2016 11:46 NBP Sys/Valery/Mean (mmHg): 106 (QS system process) : 60 (QS system process) : 77 (QS system process) Pulse: 78 (QS system process) LaborFlag: Antepartum (QS system process) Datetime: 10/04/2016 11:45 Uterine Activity Monitor Mode: External; Palpation (Ary Baidy, RN) Frequency (min): 2-3 (Ary Baidy, RN) Quality: Moderate (Ary Baidy, RN) Duration (sec): 60-110 (Ary Baidy, RN) Duration Criteria: Less than Two 120 Second Contractions (Ary Baidy, RN) Pattern: Normal: <= 5 Contractions in 10 Minutes (Ary Baidy, RN) Resting Tone (Palpate): Relaxed (Ary Baidy, RN) Assessment A Monitor Mode: External US (Ary Baidy, RN) FHR Baseline Rate : 130 (Ary Baidy, RN) Variability: Moderate 6-25 bpm (Ary Baidy, RN) Accelerations: 15X15 (Ary Baidy, RN) Decelerations: None (Ary Baidy, RN) Datetime: 10/04/2016 11:30 Uterine Activity Monitor Mode: External; Palpation (Ary Baidy, RN) Monitor Interventions for UA: [place] Adjusted (Ary Baidy, RN) Frequency (min): 2-3 (Ary Baidy, RN) Quality: Moderate (Ary Baidy, RN) Duration (sec): 60-90 (Ary Baidy, RN) Duration Criteria: Less than Two 120 Second Contractions (Ary Baidy, RN) Pattern: Normal: <= 5 Contractions in 10 Minutes (Ary Baidy, RN) Resting Tone (Palpate): Relaxed (Ary Baidy, RN) Assessment A Monitor Mode: External US (Ary Baidy, RN) FHR Baseline Rate : 130 (Ary Baidy, RN) Variability: Moderate 6-25 bpm (Ary Baidy, RN) Accelerations: 15X15 (Ary Baidy, RN) Decelerations: None (Ary Baidy, RN) Datetime: 10/04/2016 11:29 Patient Care IV/Blood Work: IV Infusing per Order (Ary Baidy, RN) Patient Care Comments: 125mL/hr (Ary Baidy, RN) Datetime: 10/04/2016 11:28 NBP Sys/Valery/Mean (mmHg): 109 (QS system process) : 67 (QS system process) : 83 (QS system process) Pulse: 80 (QS system process) LaborFlag: Antepartum (QS system process) Datetime: 10/04/2016 11:24 NBP Sys/Valery/Mean (mmHg): 111 (QS system process) : 70 (QS system process) : 85 (QS system process) Pulse: 83 (QS system process) Monitor Interventions for FHR: Ultrasound Adjusted (Ary Diamond, RN) LaborFlag: Antepartum (QS system process) Datetime: 10/04/2016 11:23 Patient Position/Activity: Right Lateral; Peanut Ball (Ary Diamond, RN) Datetime: 10/04/2016 11:17 NBP Sys/Valery/Mean (mmHg): 111 (QS system process) : 74 (QS system process) : 87 (QS system process) Pulse: 75 (QS system process) Vaginal Exam Dilatation (cm): 5.0 (Ary Diamond RN) Effacement (%): 100 (Ary Diamond RN) Station: -1 (Ary Diamond RN) Exam by: Kasandra Diamond RN (Ary Diamond RN) Membrane Status: Bulging (Ary Diamond RN) LaborFlag: Antepartum (QS system process) Datetime: 10/04/2016 11:15 NBP Sys/Valery/Mean (mmHg): 110 (QS system process) NBP Sys/Valery/Mean (mmHg): 108 (QS system process) : 64 (QS system process) : 58 (QS system process) : 81 (QS system process) : 79 (QS system process) Pulse: 82 (QS system process) Pulse: 77 (QS system process) Uterine Activity Monitor Mode: External; Palpation (Ary Diamond, NANCY) Frequency (min): 2-3 (Ary Diamond RN) Quality: Moderate (Ary Diamond RN) Duration (sec): 60-90 (Ary Diamond RN) Duration Criteria: Less than Two 120 Second Contractions (Ary Diamond, RN) Pattern: Normal: <= 5 Contractions in 10 Minutes (Ary Diamond RN) Resting Tone (Palpate): Relaxed (Ary Diamond, RN) Assessment A Monitor Mode: External US (Ary Diamond RN) FHR Baseline Changes: Unable to Determine (Ary Diamond, NANCY) Variability: Moderate 6-25 bpm (Ary Diamond RN) Accelerations: Prolonged (Ary Diamond RN) Decelerations: None (Ary Diamond, RN) I/O Interventions: Rouse Cath Inserted (Ary Diamond, RN) Patient Care Comments: 14f clear yellow urine noted. (Ary Diamond, NANCY) LaborFlag: Antepartum (QS system process) Datetime: 10/04/2016 11:13 NBP Sys/Valery/Mean (mmHg): 115 (QS system process) : 72 (QS system process) : 88 (QS system process) Pulse: 91 (QS system process) LaborFlag: Antepartum (QS system process) Datetime: 10/04/2016 11:12 NBP Sys/Valery/Mean (mmHg): 110 (QS system process) : 72 (QS system process) : 85 (QS system process) Pulse: 87 (QS system process) LaborFlag: Antepartum (QS system process) Datetime: 10/04/2016 11:11 NBP Sys/Valery/Mean (mmHg): 112 (QS system process) : 69 (QS system process) : 86 (QS system process) Pulse: 88 (QS system process) LaborFlag: Antepartum (QS system process) Datetime: 10/04/2016 11:10 NBP Sys/Valery/Mean (mmHg): 107 (QS system process) : 67 (QS system process) : 80 (QS system process) Pulse: 88 (QS system process) LaborFlag: Antepartum (QS system process) Datetime: 10/04/2016 11:09 NBP Sys/Valery/Mean (mmHg): 112 (QS system process) NBP Sys/Valery/Mean (mmHg): 113 (QS system process) : 69 (QS system process) : 72 (QS system process) : 84 (QS system process) : 87 (QS system process) Pulse: 89 (QS system process) Pulse: 96 (QS system process) Patient Position/Activity: Right Tilt (Ary Diamond RN) LaborFlag: Antepartum (QS system process) Datetime: 10/04/2016 11:08 Monitor Interventions for UA: [place] Adjusted (Ary Diamond, RN) Monitor Interventions for FHR: Ultrasound Adjusted (Ary Diamond, RN) Datetime: 10/04/2016 11:07 NBP Sys/Valery/Mean (mmHg): 123 (QS system process) : 80 (QS system process) : 94 (QS system process) Pulse: 90 (QS system process) Pulse: 85 (QS system process) SpO2 (%): 98 (QS system process) LaborFlag: Antepartum (QS system process) Datetime: 10/04/2016 11:05 NBP Sys/Valery/Mean (mmHg): 126 (QS system process) : 84 (QS system process) : 100 (QS system process) Pulse: 91 (QS system process) LaborFlag: Antepartum (QS system process) Datetime: 10/04/2016 11:04 Epidural Procedure: Cath Placed (Ary Baidy, RN) Epidural Procedure: Test Dose (Ary Baidy, RN) Datetime: 10/04/2016 11:02 Pulse: 101 (QS system process) SpO2 (%): 97 (QS system process) LaborFlag: Antepartum (QS system process) Datetime: 10/04/2016 11:00 Uterine Activity Monitor Mode: External; Palpation (Ary Baidy, RN) Frequency (min): 2-3 (Ary Baidy, RN) Quality: Moderate (Ary Baidy, RN) Duration (sec): 60-90 (Ary Baidy, RN) Duration Criteria: Less than Two 120 Second Contractions (Ary Baidy, RN) Pattern: Normal: <= 5 Contractions in 10 Minutes (Ary Baidy, RN) Resting Tone (Palpate): Relaxed (Ary Baidy, RN) Assessment A Monitor Mode: External US (Ary Baidy, RN) FHR Baseline Rate : 130 (Ary Baidy, RN) Variability: Moderate 6-25 bpm (Ary Baidy, RN) Accelerations: 15X15 (Ary Baidy, RN) Decelerations: None (Ary Baidy, RN) Datetime: 10/04/2016 10:58 Procedure TIME OUT Procedure Type: epidural (Ary Diamond, RN) Procedure Verify: Correct Patient Identity; Correct Side and Site are Marked; Accurate Procedure Consent Form; Agreement on Procedure to be Done; Correct Patient Position; Relevant Images and Results are Properly Labeled and Displayed; Addressed Need to Administer Antibiotics or Fluids for Irrigation; Safety Precautions Based on Patient History or Medication Use (Ary Diamond, RN) Anesthesia Anesthesia Plans: Epidural (Aryletha Diamond, RN) Epidural Positioning: Sitting (Ary Diamond, RN) Datetime: 10/04/2016 10:57 Pulse: 102 (QS system process) SpO2 (%): 96 (QS system process) LaborFlag: Antepartum (QS system process) Datetime: 10/04/2016 10:52 Patient Care IV/Blood Work: New IV Bag Hung (Ary Baidy, RN) Datetime: 10/04/2016 10:50 Anesthesia Comments: Dr [place] notified of epidural request (Daniella Madi, RN) Datetime: 10/04/2016 10:48 Anesthesia Comments: Dr [place]head called and notified of pt request for epidural. (Ary Diamond RN) Datetime: 10/04/2016 10:30 Uterine Activity Monitor Mode: External; Palpation (Ary Diamond RN) Frequency (min): 2-3 (Ary Diamond RN) Quality: Moderate (Ary Diamond RN) Duration (sec): 60-90 (Ary Baidy, RN) Duration Criteria: Less than Two 120 Second Contractions (Ary Baiirina, RN) Pattern: Normal: <= 5 Contractions in 10 Minutes (Ray Baiirina, RN) Resting Tone (Palpate): Relaxed (Ary Baidy, RN) Assessment A Monitor Mode: External US (Ary Diamond, RN) FHR Baseline Rate : 130 (Ary Baidy, RN) Variability: Moderate 6-25 bpm (Ary Baidy, RN) Accelerations: 15X15 (Ary Baidy, RN) Decelerations: None (Ary Baidy, RN) Datetime: 10/04/2016 10:23 Monitor Interventions for FHR: Ultrasound Adjusted (Ary Diamond, RN) Patient Care Comments: pt sitting straight up in bed (Ary Baiirina, RN) Datetime: 10/04/2016 10:16 Medications Antibiotics: Clindamycin IV 900 mg (Ary Baidy, RN) Datetime: 10/04/2016 10:12 Patient Care IV/Blood Work: IV Started; IV Bolus Started (Ary Baidy, RN) Patient Care Comments: 18g in left wrist, stat lock applied. (Ary Diamond, RN) Datetime: 10/04/2016 10:01 I/O Interventions: Up to BR (Ary Diamond, RN) Datetime: 10/04/2016 10:00 Uterine Activity Monitor Mode: External; Palpation (Ary Diamond RN) Frequency (min): 1-3 (Ary Diamond RN) Quality: Mild/Moderate (Ary Baidy, RN) Duration (sec): 40-90 (Ary Diamond, RN) Duration Criteria: Less than Two 120 Second Contractions (Ary Diamond, RN) Pattern: Normal: <= 5 Contractions in 10 Minutes (Ary Diamond RN) Resting Tone (Palpate): Relaxed (Ary Diamond, RN) Assessment A Monitor Mode: External US (Ary Diamond, RN) FHR Baseline Rate : 135 (Ary Diamond, RN) Variability: Moderate 6-25 bpm (Ary Diamond, RN) Accelerations: None (Ary Diamond, RN) Decelerations: None (Ary Baiirina, RN) Communication Communication: Report Given to @ Dr Gutierrez (Ary Diamond, NANCY) Notification Reason: Status Update; Status; Labor Status; Membrane Status; Uterine Activity; Pain (Ary Diamond RN) Communication Comments: Orders received to admit and pt may have epidural prn for pain. (Ary Diamond, RN) Datetime: 10/04/2016 09:53 Monitor Interventions for FHR: Ultrasound Adjusted (Ary Baidy, RN) Patient Care Comments: pt standing at bedside (Ary Baidy, RN) Datetime: 10/04/2016 09:45 Patient Position/Activity: Birthing Ball (Ary Baidy, RN) Datetime: 10/04/2016 09:41 Vaginal Exam Dilatation (cm): 4.0 (Ary Baidy, RN) Effacement (%): 90 (Ary Baidy, RN) Station: -2 (Ary Baidy, RN) Exam by: B Baidy RN (Ary Baidy, RN) Cervix, Consistency: Soft (Ary Baidy, RN) Datetime: 10/04/2016 09:37 Monitor Interventions for UA: [place] Adjusted (Ary Baidy, RN) Datetime: 10/04/2016 09:30 Uterine Activity Monitor Mode: External; Palpation (Ary Baidy, RN) Frequency (min): 1-3 (Ary Baidy, RN) Quality: Moderate (Ary Baidy, RN) Duration (sec): 40-70 (Ary Baidy, RN) Duration Criteria: Less than Two 120 Second Contractions (Ary Baidy, RN) Pattern: Normal: <= 5 Contractions in 10 Minutes (Ary Baidy, RN) Resting Tone (Palpate): Relaxed (Ary Baidy, RN) Assessment A Monitor Mode: External US (Ary Baidy, RN) FHR Baseline Rate : 130 (Ary Baidy, RN) Variability: Moderate 6-25 bpm (Ary Baidy, RN) Accelerations: 15X15 (Ary Baidy, RN) Decelerations: None (Ary Baidy, RN) Datetime: 10/04/2016 09:27 Patient Position/Activity: Right Tilt (Ary Baidy, RN) Datetime: 10/04/2016 09:15 NBP Sys/Valery/Mean (mmHg): 109 (QS system process) : 66 (QS system process) : 83 (QS system process) Pulse: 102 (QS system process) LaborFlag: Antepartum (QS system process) Datetime: 10/04/2016 09:00 Vital Signs Stage of : Antepartum (Ary Baidy, RN) Uterine Activity Monitor Mode: External; Palpation (Ary Baidy, RN) Frequency (min): x1 (Ary Baidy, RN) Quality: Mild/Moderate (Ary Baidy, RN) Assessment A Monitor Mode: External US (Ary Baidy, RN) FHR Baseline Rate : 140 (Ary Baidy, RN) Variability: Moderate 6-25 bpm (Ary Baidy, RN) Accelerations: None (Ary Baidy, RN) Decelerations: None (Ary Baidy, RN) Datetime: 10/04/2016 08:49 Vaginal Exam Dilatation (cm): 3.0 (Ary Baidy, RN) Effacement (%): 80 (Ary Baidy, RN) Station: -2 (Ary Baidy, RN) Exam by: B Baidy RN (Ary Baidy, RN) Datetime: 10/04/2016 08:47 Monitor Interventions for UA: [place] Adjusted (Ary Baidy, RN) Datetime: 10/04/2016 08:44 NBP Sys/Valery/Mean (mmHg): 96 (QS system process) : 66 (QS system process) : 74 (QS system process) Pulse: 114 (QS system process) LaborFlag: Antepartum (QS system process) Datetime: 10/04/2016 08:41 Frequency (min): 5-10 (Ary Diamond RN) Pain Pain Scale: 5 (Ary Diamond RN) Pain Presence: Intermittent (Ary Diamond RN) Pain Type: Contraction (Ary Diamond RN) Pain Location: Abdomen (Ary Diamond RN) Pain Goal: 1 (Ary Diamond RN) Pain Coping: Breathing Through Contractions (Ayr Diamond RN) Membrane Status: Intact (Ary Diamond RN) Vaginal Bleeding: None (Ary Diamond RN) Maternal Assessment Level of Consciousness: Fully Conscious (Ary Diamond, RN) DTR's/Clonus: DTRs 2+; No Clonus (Ary Diamond, RN) Headache: Frontal (Ary Diamond, RN) Breath Sounds, Left: Clear and Equal (Ary Baiirina, RN) Breath Sounds, Right: Clear and Equal (Ary Baiirina, RN) Nausea/Vomiting: Denies (Ary Diamond, RN) RUQ Epigastric Pain: Denies (Ary Diamond, RN) Patient Position/Activity: Left Lateral (Ary Diamond, RN) Teaching Instructional Method: Verbal; Patient Instructed; Verbalized Understanding (Ary Diamond RN) Plan of Care: Plan of Care Discussed (Ary Diamond RN) Unit Routine: [employer] to Room; Call Mariano; Bed; Monitoring (Ary Diamond, NANCY) LaborFlag: Antepartum (QS system process) Datetime: 10/04/2016 08:18 Membranes Ruptured Date/Time: 10/04/2016 12:51 (Ary Baidy, RN) Datetime: 10/04/2016 08:00 Vital Signs Stage of : Antepartum (Ary Baidy, RN)
[2016-10-04] MEDS: IBUPROFEN 800 MG TABLET PO SCH (21:55)
[2016-10-05] MEDS: ACETAMINOPHEN WITH CODEINE #3 TABLET PO PRN ×3 (02:05→20:21)
[2016-10-05] MEDS: IBUPROFEN 800 MG TABLET PO SCH ×3 (06:00→21:45)
--- NOTE | 2016-10-05 06:01 | L&D General Admission ---
General Admit Datetime Report Generated by CPN: 10/05/2016 06:00 INFORMATION Patient Age: 31 (10/04/2016 08:17:QS system process) EDC: 10/02/2016 00:00 (10/04/2016 08:18:Ary Diamond RN) : 3 (10/04/2016 08:18:Ary Diamond RN) Para: 2 (10/04/2016 08:18:Ary Diamond RN) Term: 2 (10/04/2016 08:18:Ary Diamond RN) : 0 (10/04/2016 08:18:Ary Diamond RN) Spontaneous Abortions: 0 (10/04/2016 08:18:Ary Diamond RN) Induced Abortions: 0 (10/04/2016 08:18:Ary Diamond RN) Livin (10/04/2016 08:18:Ary Diamond RN) Cesareans: 0 (10/04/2016 08:18:Ary Diamond RN) VBACs: 0 (10/04/2016 08:18:Ary Diamond RN) Ectopic: 0 (10/04/2016 08:18:Ary Diamond RN) Multiple Births: 0 (10/04/2016 08:18:Ary Diamond RN) Baby, Number in Womb: 1 (10/04/2016 08:18:Ary Diamond RN) CARE Primary Vice President Payer: [facility] (10/04/2016 08:18:Ary Diamond RN) Adequate Care: Yes (10/04/2016 08:18:Ary Diamond RN) Prepregnancy Weight (lb): 115 (10/04/2016 08:18:Ary Diamond RN) Prepregnancy Weight (kg): 52.3 (10/04/2016 08:18:QS system process) Height (in): 63 (10/04/2016 15:49:QS system process) ALLERGIES Medication Allergy: Yes (10/04/2016 08:18:Ary Diamond RN) Medication Allergies: amoxicillin/Unknown reactio (10/04/2016) (10/04/2016 08:35:QS system process) Latex Allergy: No Latex Allergies (10/04/2016 08:18:Ary Diamond RN) COMMUNICATION Primary Language: French (10/04/2016 08:18:Ary Diamond RN) Medical Tx Preferred Language: French (10/04/2016 08:18:Ary Diamond RN) Communication Barrier(s): None (10/04/2016 08:18:Ary Diamond RN) DEMOGRAPHICS Address: [address] [place] [id number] (10/04/2016 08:17:QS system process) Zipcode: [address] (10/04/2016 08:17:QS system process) [place] (10/04/2016 08:18:Ary Diamond RN) Home (10/04/2016 08:17:QS system process) SSN: [id number] (10/04/2016 08:17:QS system process) Next of Kin Name: HUSAM HARRIS (10/04/2016 08:17:QS system process) Next of Kin (10/04/2016 08:17:QS system process) Next of Kin Relationship: FA (10/04/2016 08:17:QS system process) Date of : 1985 (10/04/2016 08:17:QS system process) Marital Status: Single (10/04/2016 08:17:QS system process) Sex: Female (10/04/2016 08:17:QS system process) Occupation: None (10/04/2016 08:18:Ary Diamond RN) Race: (10/04/2016 08:17:QS system process) Ethnicity: Non- or (10/04/2016 08:17:QS system process) Caodaism: None (10/04/2016 08:17:QS system process) FOB Involved: Yes (10/04/2016 08:18:Ary Diamond RN) Father of Baby Name: Josselin Person (10/04/2016 08:18:Ary Diamond RN) DRUG AND ALCOHOL USE Alcohol: No (10/04/2016 08:18:Ary Diamond RN) Cigarettes: Current Everyday Smoker. [id number] (10/04/2016 08:18:Ary Diamond RN) Average Cigarettes Smoked: > 10 per day (10/04/2016 08:18:Ary Diamond RN) Advised to Stop Smoking: Yes (10/04/2016 08:18:Ary Diamond RN) Cigarette Comments: pt states that she smokes over 1/2 pack per day (10/04/2016 08:18:Ary Diamond RN) Marijuana: No (10/04/2016 08:18:Ary Diamond RN) Marijuana Comments: prenatals state that pt has hx of drug abuse marijuana drug of choice. (10/04/2016 08:18:Ary Diamond RN) Cocaine: No (10/04/2016 08:18:Ary Diamond RN) Other Illicit Drugs: No (10/04/2016 08:18:Ary Diamond RN) VACCINE HISTORY Influenza Vaccine: No (10/04/2016 08:18:Ary Diamond RN) Pneumococcal Vaccine: No (10/04/2016 08:18:Ary Diamond RN) Tetanus Vaccine: No (10/04/2016 08:18:Ary Diamond RN) Tdap Vaccine: Uncertain (10/04/2016 08:18:Ary Diamond RN) Hepatitis B Vaccine: Uncertain (10/04/2016 08:18:Ary Diamond RN) Loom Fixer: [facility] (10/04/2016 08:18:Ary Diamond RN) Feeding Preference: Formula (10/04/2016 08:18:Ary Diamond RN) Benefit of Breast Feed Discussed: Yes (10/04/2016 08:18:Ary Diamond RN) Circumcision: N/A (10/04/2016 08:18:Ary Diamond RN) Classes Attended: No (10/04/2016 08:18:Ary Diamond RN) Tubal Ligation: No (10/04/2016 08:18:Ary Diamond RN) Tubal Authorization Signed: N/A (10/04/2016 08:18:Ary Diamond RN) Consent: N/A (10/04/2016 08:18:Ary Diamond RN) Consent Signed: N/A (10/04/2016 08:18:Ary Diamond RN) Pain Management Plans: Epidural (10/04/2016 08:18:Ary Diamond RN) Support Person: Vadim Person (10/04/2016 08:18:Ary Diamond RN) Support Person Relationship: Significant Other (10/04/2016 08:18:Ary Diamond RN) Cultural/Spritual Practice: No (10/04/2016 08:18:Ary Diamond RN) Spir/Cult Dietary Needs: No (10/04/2016 08:18:Ary Diamond RN) LIVING SITUATION/DISCHARGE PLAN Living Arrangements: House (10/04/2016 08:18:Ary Diamond RN) Adequate Access to:: Electric; Heat; Refrigeration; Plumbing/Running water; Phone (10/04/2016 08:18:Ary Diamond RN) WIC Program: Needs referral (10/04/2016 08:18:Ary Diamond RN) Discharge Abrasive Mixer Person: Josselin (10/04/2016 08:18:Ary Diamond RN) Person to Help after Discharge: Josselin (10/04/2016 08:18:Ary Diamond RN) Currently Using Commun Resources: No (10/04/2016 08:18:Ary Diamond RN) Outside Agency/Admitting Representative: No (10/04/2016 08:18:Ary Diamond RN) Car Seat for Discharge: Yes (10/04/2016 08:18:Ary Diamond RN) Adoption Requested: No (10/04/2016 08:18:Ary Diamond RN) Pt Contact w/ Post : N/A (10/04/2016 08:18:Ary Diamond RN) LABS Blood Type: B Positive (10/04/2016 08:18:Ary Diamond RN) Antibody Screen: negative (10/04/2016 08:18:Ary Diamond RN) Rho(G) this : Not Applicable (10/04/2016 08:18:Ary Diamond RN) Hemoglobin: 12.0 (10/04/2016 10:31:QS system process) Hematocrit: 35.4 L (10/04/2016 10:31:QS system process) MCV: 95 (10/04/2016 10:31:QS system process) Group Beta Strep: positive (10/04/2016 08:18:Ary Diamond RN) Gonorrhea: Negative (10/04/2016 08:18:Ary Diamond RN) Chlamydia: Negative (10/04/2016 08:18:Ary Diamond RN) RPR/VDRL: Nonreactive (10/04/2016 08:18:Ary Diamond RN) HIV Exposure Test: Negative (10/04/2016 08:18:Ary Diamond RN) Hepatitis B: Negative (10/04/2016 08:18:Ary Diamond RN) Urine Culture: Negative (10/04/2016 08:18:Ary Diamond RN) Rubella: Immune (10/04/2016 08:18:Ary Diamond RN) OB/PREVIOUS HISTORY Previous Procedures: Ultrasound (10/04/2016 08:18:Ary Diamond RN) Current Procedures: Ultrasound; NST (10/04/2016 08:18:Ary Diamond RN) History of Previous : No (10/04/2016 08:18:Ary Diamond RN) History of Gestational Diabetes: No (10/04/2016 08:18:Ary Diamond RN) History of PIH: No (10/04/2016 08:18:Ary Diamond RN) History of Incompetent Cervix: No (10/04/2016 08:18:Ary Diamond RN) History of Placenta Previa/Abrup: No (10/04/2016 08:18:Ary Diamond RN) History of Macrosomia: No (10/04/2016 08:18:Ary Diamond RN) History of IUGR: No (10/04/2016 08:18:Ary Diamond RN) History of Hemorrhage: No (10/04/2016 08:18:Ary Diamond RN) History of Loss/Stillborn: No (10/04/2016 08:18:Ary Diamond RN) History of : No (10/04/2016 08:18:Ary Diamond RN) History of D (Rh) Sensitization: No (10/04/2016 08:18:Ary Diamond RN) History Recurrent Loss/Stillborn: No (10/04/2016 08:18:Ary Diamond RN) History Depression/PP Depression: No (10/04/2016 08:18:Ary Diamond RN) History of Uterine Anomaly/MONIE: No (10/04/2016 08:18:Ary Diamond RN) History of Infertility: No (10/04/2016 08:18:Ary Diamond RN) History of ART Treatment: No (10/04/2016 08:18:Ary Diamond RN) History of MONIE: No (10/04/2016 08:18:Ary Diamond RN) Comments Obstetrical History: G1- 41 wk 2008 G2- 38.5 2013 G2-current (10/04/2016 08:18:Ary Diamond RN) MEDICAL HISTORY Med Hx Diabetes: No (10/04/2016 08:18:Ary Diamond RN) Med Hx Hypertension: No (10/04/2016 08:18:Ary Diamond RN) Med Hx Heart Disease: No (10/04/2016 08:18:Ary Diamond RN) Med Hx Autoimmune Disorder: No (10/04/2016 08:18:Ary Diamond RN) Med Hx Kidney Disease/UTI: No (10/04/2016 08:18:Ary Diamond RN) Med Hx Neurologic/Epilepsy: No (10/04/2016 08:18:Ary Baidy, RN) Med Hx Psychiatric Disorders: No (10/04/2016 08:18:Ary Diamond RN) Med Hx Hepatitis/Liver Disease: No (10/04/2016 08:18:Ary Diamond RN) Med Hx Varicosities/Phlebitis: No (10/04/2016 08:18:Ary Diamond RN) Med Hx Thyroid Dysfunction: No (10/04/2016 08:18:Ary Diamond RN) Med Hx Trauma/Violence: No (10/04/2016 08:18:Ary Diamond RN) Med Hx Blood Transfusion: No (10/04/2016 08:18:Ary Diamond RN) Med Hx Pulmonary (Asthma,TB): No (10/04/2016 08:18:Ary Diamond RN) Med Hx Breast: No (10/04/2016 08:18:Ary Diamond RN) 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 pneumothorax 2010, right side, chest tube placed. (10/04/2016 08:18:Ary Diamond RN) INFECTIOUS HISTORY Inf Hx Gonorrhea: No (10/04/2016 08:18:Ary Diamond RN) Inf Hx Chlamydia: No (10/04/2016 08:18:Ary Diamond RN) Inf Hx Syphilis: No (10/04/2016 08:18:Ary Diamond RN) Inf Hx HIV/AIDS: No (10/04/2016 08:18:Ary Diamond RN) Inf Hx Human Papilloma Virus: Yes (10/04/2016 08:18:Ary Diamond RN) Inf Hx Pt/Partner Genital Herpes: No (10/04/2016 08:18:Ary Diamond RN) Inf Hx Tuberculosis/Exposure: No (10/04/2016 08:18:Ary Diamond RN) Inf Hx Hepatitis B,C: No (10/04/2016 08:18:Ary Diamond RN) Inf Hx Rash or Viral Illness: No (10/04/2016 08:18:Ary Diamond RN) GENETIC HISTORY Gen Hx Age >=35 at DANNY: No (10/04/2016 08:18:Ary Diamond RN) Gen Hx Thalassemia: No (10/04/2016 08:18:Ary Diamond RN) Gen Hx Congenital Heart Defect: No (10/04/2016 08:18:Ary Diamond RN) Gen Hx Neural Tube Defect: No (10/04/2016 08:18:Ary Diamond RN) Gen Hx Down's Syndrome: No (10/04/2016 08:18:Ary Diamond RN) Gen Hx Rupesh-Sachs: No (10/04/2016 08:18:Ary Diamond RN) Gen Hx Bonnie: No (10/04/2016 08:18:Ary Diamond RN) Gen Hx Familial Dysautonomia: No (10/04/2016 08:18:Ary Diamond RN) Gen Hx Sickle Cell Disease/Trait: No (10/04/2016 08:18:Ary Diamond RN) Gen Hx Hemophilia/Blood Disorder: No (10/04/2016 08:18:Ary Diamond RN) Gen Hx Muscular Dystrophy: No (10/04/2016 08:18:Ary Diamond RN) Gen Hx Cystic Fibrosis: No (10/04/2016 08:18:Ary Diamond RN) Gen Hx Huntingtons Chorea: No (10/04/2016 08:18:Ary Diamond RN) Gen Hx Mental Retardation/Autism: No (10/04/2016 08:18:Ary Diamond RN) Gen Hx Tested for Fragile X: No (10/04/2016 08:18:Ary Diamond RN) Gen Hx Other Inher/Chromosomal: No (10/04/2016 08:18:Ary Diamond RN) Gen Hx Maternal Metabolic DO: No (10/04/2016 08:18:Ary Diamond RN) Gen Hx Pt Father or FOB Defect: No (10/04/2016 08:18:Ary Diamond RN) Gen Hx Other Genetic History: No (10/04/2016 08:18:Ary Diamond RN) Gen Hx Drugs/Meds since LMP: Yes (10/04/2016 08:18:Ary Diamond RN) Gen Hx Medications: PNV, tylenol (Annotations: Data stored by CPN on behalf of user) (10/04/2016 08:18:Ary Diamond RN)
--- NOTE | 2016-10-05 06:01 | L&D Current Admission ---
Current Admit Datetime Report Generated by CPN: 10/05/2016 06:00 ADMISSION INFORMATION Current Admit Date/Time: 10/04/2016 10:06 (10/04/2016 10:06:Ary Diamond RN) Reason for Admission: Onset of Labor (10/04/2016 10:06:Ary Diamond RN) Chief Complaint: Contractions (10/04/2016 08:41:Ary Diamond RN) EGA per Dates: 40.2 (10/04/2016 10:06:QS system process) Method of Arrival: Ambulatory (10/04/2016 10:06:Ary Diamond RN) Admitted From: Home (10/04/2016 10:06:Ary Diamond RN) Reason for Induction: Not Applicable (10/04/2016 10:06:Ary Diamond RN) Records Available: Yes (10/04/2016 10:06:Ary Diamond RN) General Admission Information: Reviewed; Updated; Confirmed (10/04/2016 10:06:Ary Diamond RN) General Admission Reviewed By: Kasandra Diamond RN (10/04/2016 10:06:Ary Diamond RN) BELONGINGS/ADVANCED DIRECTIVES Other Belongings: see valuable consent (10/04/2016 10:06:Ary Diamond RN) Disposition of Belongings: Kept with Patient (10/04/2016 10:06:Ary Diamond RN) Advance Direct for Healthcare: No, and Wants No Information (10/04/2016 10:06:Ary Diamond RN) Durable Power of Sales Department Supervisor: No (10/04/2016 10:06:Ary Diamond RN) Living Will: No (10/04/2016 10:06:Ary Diamond RN) Organ Donor: Yes (10/04/2016 10:06:Ary Diamond RN) Pt Rights Information Given: Yes (10/04/2016 10:06:Ary Diamond RN) Pt Understands Pt Rights: Yes (10/04/2016 10:06:Ary Diamond RN) LEARNING ASSESSMENT Knowledge Level: Understands L_D Process (10/04/2016 10:06:Ary Diamond RN) Barriers to Learning: None (10/04/2016 10:06:Ary Diamond RN) Learning Readiness: Motivated (10/04/2016 10:06:Ary Diamond RN) Learns Best By: 1 to 1 Instruction (10/04/2016 10:06:Ary Diamond RN) Learning Needs: Labor and Delivery Process; Pain Management; Symptoms to Report (10/04/2016 10:06:Ary Diamond RN) DOMESTIC VIOLANCE SCREENING Dom Viol Threatened/Hurt: No (10/04/2016 10:06:Ary Diamond RN) Hx of Abuse/Neglect past 2yrs: No (10/04/2016 10:06:Ary Diamond RN) Feel Unsafe Going Home: No (10/04/2016 10:06:Ary Diamond RN) Addt'l Observ Indicating Abuse: No (10/04/2016 10:06:Ary Diamond RN) Reason Unable to Complete Screen: N/A, Screen Completed (10/04/2016 10:06:Ary Diamond RN) Considered Personal Harm/Suicide: No (10/04/2016 10:06:Ary Diamond RN) NUTRITIONAL/FUNCTIONAL SCREENING Problem with Appetite >5 Days: No (10/04/2016 10:06:Ary Diamond RN) Chew/Swallow Difficulties: No (10/04/2016 10:06:Ary Diamond RN) Inappropriate Wt Gain/Loss: No (10/04/2016 10:06:Ayr Diamond RN) Presence Skin Breakdown/Ulcer: No (10/04/2016 10:06:Ary Diamond RN) Special Diet: No (10/04/2016 10:06:Ary Diamond RN) Pt Requests Technical Support Technician Visit: No (10/04/2016 10:06:Ary Diamond RN) Hx of Any of the Following?: N/A (10/04/2016 10:06:Ary Diamond RN) New Diagnosis of: N/A (10/04/2016 10:06:Ary Diamond RN) Requires Assist w/Ambulation: No (10/04/2016 10:06:Ary Diamond RN) Uses Assist Device to Ambulate: No (10/04/2016 10:06:Ary Diamond RN) Pt Requires Help w/ADL's: No (10/04/2016 10:06:Ary Diamond RN)
--- NOTE | 2016-10-05 06:16 | L&D Care Plan ---
LD CARE PLANS Datetime Report Generated by CPN: 10/05/2016 06:15 Datetime: 10/04/2016 10:23 Pain State: Risk For (Erica Hugo RN) Related To: Labor and Delivery Process (Erica Hugo RN) Goal(s): Patients Pain will be Assessed and Managed; Patient will Verbalize Adequate Relief of Pain or the Ability to [place] with Current Pain (Erica Hugo RN) Interventions: Assess Pain Severity on Scale of 0 (None) to 5 (Severe); Assess Type, Location and Intensity of Pain Each Time Client Reports Discomfort and Notify Provider if Unusal Pain Develops; Encourage Proper Breathing and Relaxation Techniques; Offer Alternatives Such as Repositioning, Calm Environment, Massages, Diversional Activities, Ice Pack, Splinting, and Ambulation; Administer Analgesics as Ordered; Assist with Epidural Placement as Appropriate; Evaluate Therapeutic Effectiveness of Medication and Treatments (Erica Hugo RN) Outcome: Patient will Report Absence or Relief of Pain Consistent with Established Pain Goal (Erica Hugo RN) Status: Ongoing (Erica Hugo RN) Outcome: Patient will have a Decrease in Signs and Symptoms of Discomfort (Erica Hugo RN) Status: Ongoing (Erica Hugo RN) Outcome: Pain will be Controlled During Procedures (Erica Hugo RN) Status: Ongoing (Erica Hugo RN) Anxiety State: Risk For (Erica Hugo RN) Related To: Labor and Delivery Process (Erica Hugo RN) Goal(s): Patient will have Decreased Anxiety and be able to Function at Acceptable Levels (Erica Hugo RN) Interventions: Assess Verbal and Nonverbal Behavioral Indicators of Anxiety; Assist Patient to Identify and Verbalize Symptoms of Anxiety; Identify and Demonstrate Techniques to Control Anxiety; Assist Patient with Coping Mechanisms to Manage Anxiety; Provide Theraputic Touch for the Patient; Explain to Patient, Using a Calm Reassuring Approach and Nonmedical Terms, All Activities, Procedures, and Concerns; Instruct Patient and Family about Post Discharge Care, Limitations, Symptoms to Report and Resources Available (Erica Hugo RN) Outcome: Patient will Identify, Verbalize and Demonstrate Techniques to Control Anxiety (Erica Hugo RN) Status: Ongoing (Erica Hugo RN) Outcome: Patient's Posture, Facial Expressions, Gestures and Activity Level will Reflect Decreased Anxiety (Erica Hugo RN) Status: Ongoing (Erica Hugo RN) Outcome: Patient will Verbalize a Sense of Control and/or Acceptance of the Situation (Erica Hugo RN) Status: Ongoing (Erica Hugo RN) Outcome: Patient will Identify and Utilize Support Person (Erica Hugo RN) Status: Ongoing (Erica Hugo RN) Knowledge Deficit State: Risk For (Erica Hugo RN) Related To: Labor and Delivery Process (Erica Hugo RN) Goal(s): Patient will Accurately Verbalize Understanding of Plan of Care and Treatment; Patient and Family will Accurately Verbalize Understanding of the Disease Process (Erica Hugo RN) Interventions: Assess Motivation and Willingness of Patient/Family to Learn; Assess Preferred Learning Mode: One to One Instruction, Reading, Videos, Group Discussion or Demonstration; Assess Barriers to Learning: Pain, Emotional State, Language Barrier, Cognitive Impairment, Visual or Hearing Deficits; Assess Patient and Family Knowledge of Disease Process, Medications and Treatment; Discuss Therapy and/or Treatment Options, Describe Rationale Behind Management, Therapy and Treatment Recommendations; Instruct Patient and Family on Signs and Symptoms to Report; Instruct Patient and Family on Medication Effects and Side Effects; Provide Appropriate and Timely Education Using Multiple Techniques; Provide Patient and Family with Support Group Information and Resources; Give Clear and Thorough Explanations and Demonstrations (Erica Hugo RN) Outcome: Patient and Family will Verbalize Understanding of Condition, Treatment and Signs and Symptoms to Report (Erica Hugo RN) Status: Ongoing (Erica Hugo RN) Outcome: Patient will Identify Perceived Learning Needs and Express Motivation to Learn (Erica Hugo RN) Status: Ongoing (Erica Hugo RN) Outcome: Patient will Verbalize Understanding of Desired Content, and/or Performs Desired Skill Prior to Discharge (Erica Hugo RN) Status: Ongoing (Erica Hugo RN) Injury State: Risk For (Erica Hugo RN) Related To: Labor and Delivery Process (Erica Hugo RN) Goal(s): Patient will Remain Free from Injury (Erica Hugo RN) Interventions: Monitoring as per Hospital Protocol; Assess Neurological Status; Perform Risk Assessment of Patients with Induction and ; Perform Fall Risk Assessment and Prevention per Hospital Protocol; Perform DVT Risk Assessment and Prophylaxis per Hospital Protocol; Ensure that Oxygen, Suction, and Resuscitation Medications and Equipment are Readily Available; Confirm Patient ID Prior to Procedure(s) and Medication Administration per Hospital Policy (Erica Hugo RN) Outcome: Successful Fall Risk Prevention (Erica Hugo RN) Status: Ongoing (Erica Hugo RN) Outcome: Patient will Deliver Infant without Adverse [place] (Erica Hugo RN) Status: Ongoing (Erica Hugo RN) Outcome: Patient's Neurological Status will Remain Stable (Erica Hugo RN) Status: Ongoing (Erica Hugo RN) Impaired Skin Integrity State: Risk For (Erica Hugo RN) Related To: Vaginal Delivery (Erica Hugo RN) Goal(s): Patient will Maintain Optimal Skin Integrity, Free of Breakdown, Injury or Infection (Erica Hugo RN) Interventions: Complete Screening for Pressure Ulcer Risk and Initiate Protocol per Hospital Policy; Monitor Site of Skin Impairment for Color Changes, Redness, Swelling, Warmth, Pain or Other Signs of Infection; Encourage and Assist with Position Changes; Monitor Patient's Mobility Status; Provide Adequate Nutrition and Fluids; Teach Patient Appropriate Hygienic Care; Teach Patient/Family Skin Care Management (Erica Hugo RN) Outcome: Patient will not have Evidence of Injury Such as Skin Breakdown, Scrapes, Cuts, or Bruising (Erica Hugo RN) Status: Ongoing (Erica Hugo RN) Outcome: Patient will Report Any Altered Sensation or Pain at Site of Skin Impairment (Erica Hugo RN) Status: Ongoing (Erica Hugo RN) Outcome: Patients Incisions and Wounds will be without Signs or Symptoms of Infection (Erica Hugo RN) Status: Ongoing (Erica Hugo RN) Outcome: Patient will Demonstrate Understanding of Plan to Heal Skin and Prevent Reinjury and Verbalize Risk Factors (Erica Hugo RN) Status: Ongoing (Erica Hugo RN)
[2016-10-05 07:11] LABS: HEMATOCRIT 34.3 % (36.0-47.0); HEMOGLOBIN 11.5 g/dL (12.0-15.5); HGB HCT DIFFERENCE 0.2; MEAN CORPUSCULAR HEMOGLOBIN 31.8 pg (27.0-33.4); MEAN CORPUSCULAR HGB CONC 33.4 g/dL (32.0-36.0); MEAN CORPUSCULAR VOLUME 95 fl (80-97); RED CELL DISTRIBUTION WIDTH 14.2 % (11.5-14.0); WHITE BLOOD COUNT 19.7 10^3/uL (4.0-10.5)
[2016-10-05] MEDS: PRENATAL VITAMIN W-O CA NO5/FE FUMARATE/FA CAPSULE PO SCH (09:14)
[2016-10-05] MEDS: DOCUSATE SODIUM 100 MG CAPSULE PO SCH ×2 (09:14→17:19)
[2016-10-05] MEDS: FERROUS SULFATE 325 MG TABLET PO SCH ×2 (09:15→17:19)
[2016-10-05] MEDS: SENNOSIDES/DOCUSATE 8.6-50 MG 1 EACH TABLET PO SCH (09:15)
--- NOTE | 2016-10-05 17:43 | PDOC PROGRESS REPORT ---
Subjective-OB Subjective: Post Delivery Day: 31 year old. Denies any needs at this time sitting up offers no complaints abdomen nontender bottlefeeding- precautions reviewed anticipate d/c in AM Physical Exam (OB) Vital Signs: Temp Pulse Resp BP Pulse Ox 97.9 F 86 18 110/67 100 10/05/16 07:00 10/05/16 07:00 10/05/16 07:00 10/05/16 07:00 10/05/16 07:00 Intake & Output 10/04/16 10/05/16 10/06/16 06:59 06:59 06:59 Weight 69.15 kg - Lochia Lochia Amount: Scant < 10 ml Lochia Color: Rubra/Red - Abdomen Description: Soft, Round Hernia Present: No Fundal Description: Firm, Midline Fundal Height: u/u - u/2 Objective-Diagnostic Laboratory: 10/05/16 07:01 10/05/16 07:01 WBC 19.7 H RBC 3.60 L Hgb 11.5 L Hct 34.3 L MCV 95 MCH 31.8 MCHC 33.4 RDW 14.2 H Plt Count 316
[2016-10-06] MEDS: IBUPROFEN 800 MG TABLET PO SCH (05:53)
[2016-10-06 09:03] VITALS: BP 110/67
[2016-10-06] MEDS: DOCUSATE SODIUM 100 MG CAPSULE PO SCH (09:27)
[2016-10-06] MEDS: FERROUS SULFATE 325 MG TABLET PO SCH (09:27)
[2016-10-06] MEDS: PRENATAL VITAMIN W-O CA NO5/FE FUMARATE/FA CAPSULE PO SCH (09:28)
[2016-10-06] MEDS: SENNOSIDES/DOCUSATE 8.6-50 MG 1 EACH TABLET PO SCH (09:28)
--- NOTE | 2016-10-06 09:35 | PDOC DISCHARGE SUMMARY ---
Final Diagnosis Discharge Date: 10/06/16 Discharge Data - Discharge Medication Home Medications: Vit/Iron Fumarate/FA [ Tablet] 1 tab PO DAILY 10/04/16 Docusate Sodium [Colace 100 mg Capsule] 100 mg PO BID #60 capsule 10/06/16 Ibuprofen [Motrin 800 mg Tablet] 800 mg PO Q8 #60 tablet 10/06/16 Gestational Age: 40.2 Reason(s) for Admission: Onset of Labor, Group B Strep Positive Procedures: NST Intrapartum Procedure(s): Spontaneous Vaginal Delivery - Data Baby 1 Female at 1 minute: 8 at 5 minutes: 9 Weight: 3125 kg Home with Mother: Yes Complications: No - Diagnosis Test Laboratory: Temp Pulse Resp BP Pulse Ox 98.0 F 79 16 110/67 100 10/06/16 09:01 10/06/16 09:01 10/06/16 09:01 10/06/16 09:01 10/06/16 09:01 10/04/16 10/04/16 10/05/16 08:29 10:31 07:01 RBC 3.72 3.60 L Hgb 12.0 11.5 L Hct 35.4 L 34.3 L Urine Opiates Screen NEGATIVE - Discharge information/Instructions Discharge Activity: Activity As Tolerated, Balance Activity w/Rest, No Lifting Over 10 Pounds, No Lifting/Push/Pulling, Pelvic Rest, Slowly Increase Activity, No tub bath, Walk Frequently Discharge Diet: Regular Disposition: HOME, SELF-CARE Follow [facility] with: [facility] in: 4, Weeks
== END 2016-10-06 12:05 | disposition home or self-care (01) | DRG 775 ==
LOC: LC 08:17 → LR 10:03 → 2S 15:49
PROVIDERS: ADMIT Obstetrics & Gynecology; ATTEND Obstetrics & Gynecology
PROC: 10E0XZZ Delivery of Products of Conception, External Approach (ICD-10-PCS; principal; 2016-10-04)
PROC: 4A0HXCZ Measurement of Products of Conception, Cardiac Rate, External Approach (ICD-10-PCS; 2016-10-04)
PROC: 3E0234Z Introduction of Serum, Toxoid and Vaccine into Muscle, Percutaneous Approach (ICD-10-PCS; 2016-10-06)
DX: O99.824 Streptococcus B carrier state complicating childbirth (principal); O99.334 Smoking (tobacco) complicating childbirth; F17.210 Nicotine dependence, cigarettes, uncomplicated; Z3A.40 40 weeks gestation of pregnancy; Z37.0 Single live birth; Z23 Encounter for immunization
CPT/HCPCS: 36415; 80307; 81005; 85025; 85027; 86592; 86850; 86900; 86901; 90686; 90715; 94760; J2370; J2590; J3010; J3490